=== PATIENT | male | born 1950 | race Caucasian/White ===

== ENCOUNTER → 2016-10-14 | Outpatient (CLI) | payer BC, OTHER ==
--- NOTE | 2016-10-14 09:54 | PCVCIMAG ---
APPROVED REPORT Patient Location: Out-Patient Indications Stenosis Doppler Spectral Velocity Analysis PSV / EDVPSV / EDV ECA (R) 63 / 13 cm/sECA (L) 94 / 22 cm/s dICA (R) 52 / 20 cm/sdICA (L) 78 / 28 cm/s Tam (R) 73 / 29 cm/smICA (L) 63 / 25 cm/s pICA (R) 77 / 19 cm/spICA (L) 94 / 29 cm/s Bulb (R) 78 / 19 cm/sBulb (L) 91 / 23 cm/s dCCA (R) 107 / 27 cm/sdCCA (L) 104 / 25 cm/s mCCA (R) 88 / 21 cm/smCCA (L) 126 / 27 cm/s Vert (R) 38 / 9 cm/sVert (L) 65 / 23 cm/s Findings The right carotid bulb has mild plaque. The right proximal internal carotid artery shows no significant stenosis. The right common carotid artery shows no significant stenosis. The right external carotid artery shows no significant stenosis. The left carotid bulb has moderate calcified plaque. The left proximal internal carotid artery shows <40% stenosis. The left common carotid artery shows no significant stenosis. The left external carotid artery shows no significant stenosis. Conclusion 1. Right internal carotid artery plaquing 2. Left internal carotid artery stenosis (<40%) 3. Antegrade vertebral flow
== END | disposition home or self-care (01) ==
LOC: PCVCIMAG 09:04
PROVIDERS: ATTEND Internal Medicine Cardiovascular Disease
DX: I65.23 Occlusion and stenosis of bilateral carotid arteries (principal); I25.10 Atherosclerotic heart disease of native coronary artery without angina pectoris; I10 Essential (primary) hypertension; E78.00 Pure hypercholesterolemia, unspecified; R00.1 Bradycardia, unspecified; I77.89 Other specified disorders of arteries and arterioles; Z79.82 Long term (current) use of aspirin; Z79.899 Other long term (current) drug therapy
CPT/HCPCS: 80061; 93005; 93880; G0463

== ENCOUNTER → 2018-10-25 | Outpatient (CLI) | payer SELFPAY ==
--- NOTE | 2018-10-25 16:57 | PCVCIMAG ---
APPROVED REPORT Study performed: 10/25/2018 15:16:25 Exam: Stress Echocardiogram Indication: CAD , Hyperlipidemia, Elevated CA Score Patient Location: Echo lab Stress Nurse: Noni Briscoe RN Status: routine Ht: 6 ft 1 in HR: 57 bpm BP: 142/82 mmHg Rhythm: NSR Procedure The patient underwent an Exercise Stress Test using the Devan Protocol. Blood pressure, heart rate, and EKG were monitored. An Echocardiogram was performed by pathology lab technician in four stages in quad fashion. At peak stress, four selected images were obtained and placed side by side with resting images for comparison. Stress Test Details Stress Test: Exercise stress testing was performed using a Devan protocol. HR Resting HR: 57 bpmMax Heart Rate (APMHR): 155 bpm Max HR Achieved: 153 bpmTarget HR (85% APMHR): 131 bpm % of APMHR: 98 Recovery HR: 85 bpm HR response to stress: Normal HR response to stress BP Resting BP: 142/82 mmHg Max BP: 184/90 mmHg Recovery BP: 144/78 mmHg BP response to stress: Normal blood pressure response to stress. ECG Resting ECG: Sinus Rhythm Stress ECG: Sinus Rhythm Recovery ECG: Sinus Rhythm Clinical Reason for Termination: Maximal effort Exercise duration: 12 min 35 sec Highest Stage Achieved: Stage 5: 5.0 mph at 18% grade. Exercise capacity: 15.40 METs Overall Exercise Capacity for Age: Excellent Stress ECG Conclusion ECG: Non-ischemic Clinical: Non-ischemic Pre-Stress Echo The resting Echocardiogram showed normal left ventricular contractility with an estimated Ejection Fraction of about >55%. Normal wall motion in all segments on baseline images. Post-Stress Echo The stress Echocardiogram showed normal left ventricular contractility with an estimated Ejection Fraction of about 60-65%. Normal augmentation of wall motion in all segments on post stress images. Clinical No clinical or ECG evidence for ischemia. Conclusion Clinical Response: Non-ischemic Exercise Capacity: Superior Stress ECG Response: Non-ischemic Stress Echo Images: Non-ischemic The left ventricle is normal in size and wall thickness in both the rest and stress images. Other Information Study Quality: Adequate <Conclusion> The left ventricle is normal in size and wall thickness in both the rest and stress images.
== END | disposition home or self-care (01) ==
LOC: PCVCIMAG 14:59
PROVIDERS: ATTEND Internal Medicine Cardiovascular Disease
DX: I25.10 Atherosclerotic heart disease of native coronary artery without angina pectoris (principal); E78.5 Hyperlipidemia, unspecified; R93.1 Abnormal findings on diagnostic imaging of heart and coronary circulation; E78.00 Pure hypercholesterolemia, unspecified
CPT/HCPCS: 93325; 93351